=== PATIENT | male | born 1955 | race Asian ===

== ENCOUNTER 2025-07-28 15:38 | Emergency (ER) | payer OTHER ==
[~2025-07-28] VITALS: Ht 157.5 cm; Wt 67.6 kg
[2025-07-28] MEDS ORDERED: ASPIRIN 81 MG CHEW PO ONE (15:45)
[2025-07-28] MEDS ORDERED: NITROGLYCERIN 0.4 MG SUBL SL PRN (15:45)
[2025-07-28] MEDS ORDERED: DAPAGLIFLOZIN5 MG PO (15:52)
[2025-07-28 15:53] LABS: BASOPHILS 1.0 % (0.2-1.2); EOSINOPHILS 6.6 % (0.8-7.0); LYMPHOCYTES 37.9 % (21.8-53.1); MCH 31.2 PG (25.7-32.2); MCHC 34.8 g/dL (32.3-36.5); MCV 89.6 fL (79.0-92.2); MONOCYTES 8.3 % (5.3-12.2); NEUTROPHILS 46.1 % (34.0-67.9); RBC 4.91 M/uL (4.63-6.08)
[2025-07-28] MEDS ORDERED: ALLOPURINOL100 MG PO (15:53)
[2025-07-28] MEDS ORDERED: SIMVASTATIN20 MG (15:53)
[2025-07-28] MEDS ORDERED: LOSARTAN POTASS50 MG PO (15:53)
[2025-07-28] MEDS ORDERED: GLIPIZIDE5 MG PO (15:53)
[2025-07-28] MEDS ORDERED: AMLODIPINE BESYL5 MG PO (15:53)
[2025-07-28] MEDS ORDERED: PANTOPRAZOLE SO20 MG PO (15:53)
[2025-07-28 16:11] LABS: ALT (SGPT) 57.0 U/L (14-59); AST (SGOT) 21.0 U/L (15-37); GLOMERULAR FILTRATION RATE,EST 45.0 mL/min (>60); PROTEIN, TOTAL 8.8 g/dL (6.4-8.2); UREA NITROGEN 32.0 mg/dL (7-18)
[2025-07-28] MEDS ORDERED: NITROGLYCERIN PACKET TOP ONE (16:15)
[2025-07-28] MEDS ORDERED: LIDOCAINE & ANTACID 35 ML BTL PO ONE (17:15)
[2025-07-28] MEDS ORDERED: HEPARIN SOD,PORK IN 0.45% NACL 500 ML IV SCH (18:30)
[2025-07-28 18:44] LABS: INR 0.95 (0.80-1.30); PROTIME 12.0 Sec (11.2-14.2)
[2025-07-28 21:25] VITALS: BP 132/87
--- NOTE | 2025-07-29 17:51 | EKG ---
[facility] [address] [facility] [place], [place] [address] Signed Normal sinus rhythm Left ventricular hypertrophy with repolarization abnormality ( Sokolow-Donald ) Abnormal ECG When compared with ECG of 28-JUL-2025 16:01, (Unconfirmed) Sinus rhythm has replaced Ectopic atrial rhythm Confirmed by Kermit Moreland DO ([id number]) on 07/29/2025 5:51:27 PM Electronically Signed By: KERMIT MORELAND DO 07/29/25 1751 PATIENT NAME: TABATHA CHAVEZ Electrocardiogram DATE OF : 59 PHYSICIAN: KERMIT MORELAND DO REPORT #: [id number] REPORT IS CONFIDENTIAL AND NOT TO BE RELEASED WITHOUT AUTHORIZATION
--- NOTE | 2025-07-29 17:51 | EKG ---
[facility] [address] [facility] [place], [place] [address] Signed Unusual P axis, possible ectopic atrial rhythm Left ventricular hypertrophy with repolarization abnormality ( R in aVL , Sokolow-Donald ) Abnormal ECG Confirmed by Kermit Moreland DO ([id number]) on 07/29/2025 5:51:11 PM Electronically Signed By: KERMIT MORELAND DO 07/29/25 175 PATIENT NAME: TABATHA CHAVEZ Electrocardiogram DATE OF : 59 PHYSICIAN: KERMIT MORELAND DO REPORT #: [id number] REPORT IS CONFIDENTIAL AND NOT TO BE RELEASED WITHOUT AUTHORIZATION
--- NOTE | 2025-07-29 17:51 | EKG ---
[facility] [address] [facility] [place], [place] [address] Signed Sinus rhythm with 1st degree AV block Left ventricular hypertrophy with repolarization abnormality ( Sokolow-Donald ) Abnormal ECG No previous ECGs available Confirmed by Kermit Moreland DO ([id number]) on 07/29/2025 5:50:48 PM Electronically Signed By: KERMIT MORELAND DO 07/29/251750 PATIENT NAME: TABATHA CHAVEZ Electrocardiogram DATE OF : 59 PHYSICIAN: KERMIT MORELAND DO REPORT #: [id number] REPORT IS CONFIDENTIAL AND NOT TO BE RELEASED WITHOUT AUTHORIZATION
--- NOTE | 2025-07-29 17:52 | EKG ---
[facility] [address] [facility] [place], [place] [address] Signed Normal sinus rhythm Left ventricular hypertrophy with repolarization abnormality ( R in aVL , Sokolow-Donald ) Abnormal ECG When compared with ECG of 28-JUL-2025 16:57, (Unconfirmed) No significant change was found Confirmed by Kermit Moreland DO ([id number]) on 07/29/2025 5:51:57 PM Electronically Signed By: KERMIT MORELAND DO 07/29/25 175 PATIENT NAME: TABATHA CHAVEZ Electrocardiogram DATE OF : 59 PHYSICIAN: KERMIT MORELAND DO REPORT #: [id number] REPORT IS CONFIDENTIAL AND NOT TO BE RELEASED WITHOUT AUTHORIZATION
== END 2025-07-28 21:25 | disposition short-term general hospital (02) ==
LOC: ED 15:38
PROVIDERS: Emergency Medicine
DX: I21.4 Non-ST elevation (NSTEMI) myocardial infarction (principal); I10 Essential (primary) hypertension; E11.9 Type 2 diabetes mellitus without complications; K21.9 Gastro-esophageal reflux disease without esophagitis; Z79.899 Other long term (current) drug therapy
CPT/HCPCS: 36415; 71045; 80053; 83735; 84484; 85025; 85610; 85730; 93005; 93010; 96374; 96375; 99285-25; A9270; J1644